=== PATIENT | female | born 1985 | race Caucasian/White ===

== ENCOUNTER 2017-06-22 14:32 | Emergency (ER) | payer MEDICAID ==
[2017-06-22 14:55] VITALS: BP 126/74
--- NOTE | 2017-06-22 15:20 | EDM.PDOC ---
ED HPI GENERAL MEDICAL PROBLEM - General Chief Complaint: Upper Extremity Injury/Pain Stated Complaint: right wrist pain Time Seen by Provider: 06/22/17 15:06 Source of Information: Reports: Patient History Limitations: Reports: No Limitations - History of Present Illness INITIAL COMMENTS - FREE TEXT/NARRATIVE: Patient here with complaint of pain lateral right wrist since she tried to lift bike to hang it upside down for storage in garage. Bike fell/swung while she tried to hang one tire and as she tried to catch it she heard a pop noise in the wrist and felt burning pain lateral wrist. Had tingling sensation in same zone. Pain traveled lateral forearm towards elbow. Since then her wrist has hurt when she moves it. No pain if wrist is at rest. No other reported injuries. 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 ED EXAM, GENERAL - Physical Exam Exam: See Below Exam Limited By: No Limitations General Appearance: Alert, WD/WN, No Apparent Distress Eye Exam: Bilateral Eye: EOMI, PERRL Head: Atraumatic, Normocephalic Respiratory/Chest: No Respiratory Distress Extremities: Other (Examination of right wrist shows no sign of trauma. No swelling. Patient has full ROM in wrist and fingers but voices that there is discomfort in lateral portion of forearm/wrist with all motion. Pain-free at rest. 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 Is mildly tender to touch with palpation over lateral portion of distal right forearm and wrist area. Vascularly intact. ) Neurological: Alert, Oriented, Normal Cognition Psychiatric: Normal Affect, Normal Mood Skin Exam: Warm, Dry, Intact, Normal Color Course - Vital Signs Last Recorded V/S: Last Vital Signs Temp 36.4 C 06/22/17 14:53 Pulse 76 06/22/17 14:53 Resp 14 06/22/17 14:53 BP 126/74 06/22/17 14:53 Pulse Ox 100 06/22/17 14:53 - Orders/Labs/Meds Orders: Active Orders 24 hr Category Date Time Status Wrist 2V Rt [CR] Stat Exams 06/22/17 14:37 Taken - Radiology Interpretation Free Text/Narrative:: Xray of wrist did not show obvious fracture. - Re-Assessments/Exams Free Text/Narrative Re-Assessment/Exam: 06/22/17 15:32 Xray appears unremarkable. Suspect strain/sprain. Wrist splinted for comfort. Will have patient wear splint over weekend and then advance activity as tolerated. She is to follow up at primary clinic later this week if pain has not improved. Departure - Departure Time of Disposition: 15:14 Disposition: Home, Self-Care 01 Condition: Good Clinical Impression: Other wrist sprain and strain - Discharge Information Instructions: Wrist Sprain Referrals: Caterina Davison PA-C [Primary Care Provider] - Forms: ED Department Discharge Additional Instructions: Wear splint for comfort over the weekend. You may continue to wear it next week to provide support if it continues to provide comfort. Follow up with your primary provider at the end of the week if you have not noted any improvement in pain and get rechecked. At this time, it appears that your may have irritated a tendon or ligament. No obvious fracture was noted on the xray. This will be reviewed by Radiology. OK to take Ibuprofen or Tylenol or Aleve for pain. - My Orders Last 24 Hours: My Active Orders 06/22/17 14:37 Wrist 2V Rt [CR] Stat - Assessment/Plan Last 24 Hours: My Active Orders 06/22/17 14:37 Wrist 2V Rt [CR] Stat
== END 2017-06-22 15:30 | disposition home or self-care (01) ==
LOC: LL.ED 14:32
DX: S63.501A Unspecified sprain of right wrist, initial encounter (principal); S66.911A Strain of unspecified muscle, fascia and tendon at wrist and hand level, right hand, initial encounter; E03.9 Hypothyroidism, unspecified; Z88.1 Allergy status to other antibiotic agents; Z91.018 Allergy to other foods; X50.0XXA Overexertion from strenuous movement or load, initial encounter
CPT/HCPCS: 73100-RT; 99283

== ENCOUNTER 2019-10-29 10:26 | Day surgery (SDC) | payer MEDICAID ==
[~2019-10-29 10:26] MED LIST: Ketamine 500 mg/10 ML MDV ONE; Midazolam 1 MG/ML 2 ML SDV ONE; Propofol 200 MG/20 ML SDV ONE
[2019-10-29] MEDS ORDERED: Sodium Chloride 0.9% 10 ML Syringe FLUSH PRN (10:45)
[2019-10-29] MEDS ORDERED: Lactated Ringers 1,000 ML IV SCH (10:45)
[2019-10-29] MEDS ORDERED: Ketamine 500 mg/10 ML MDV IV ONE (12:00)
[2019-10-29] MEDS ORDERED: Lidocaine 2% 5 ML SDV ONE (12:00)
--- NOTE | 2019-10-29 12:01 | PCM.PN ---
- General Info Date of Service: 10/29/19 - Review of Systems Systems Review Comment:: 34-year-old female referred for EGD. She has been having some epigastric pain. Gallbladder evaluation did identify a gallbladder polyp. She is medically stable to proceed today. Her recent history and physical is reviewed and no significant changes are noted. I have discussed the proposed upper endoscopy with the patient. She agrees to proceed accepting risks. - Patient Data Vitals - Most Recent: Last Vital Signs Temp 98.2 F 10/29/19 11:20 Pulse 81 10/29/19 11:20 Resp 18 10/29/19 11:20 BP 130/69 10/29/19 11:20 Pulse Ox 99 10/29/19 11:20 Weight - Most Recent: 89.8 kg Lab Results Last 24 Hours: Laboratory Results - last 24 hr 10/29/19 Range/Units 11:00 HCG, Qual Negative (NEGATIVE) Med Orders - Current: Current Medications Lactated Ringer's (Ringers, Lactated) 1,000 mls @ 125 mls/hr IV ASDIRECTED KASSANDRA Last Admin: 10/29/19 11:15 Dose: 125 mls/hr Sodium Chloride (Saline Flush) 10 ml FLUSH ASDIRECTED PRN PRN Reason: Keep Vein Open Discontinued Medications Ketamine HCl (Ketalar) Confirm Administered Dose 500 mg .ROUTE .STK-MED ONE Stop: 10/29/19 08:42 Midazolam HCl (Versed 1 Mg/Ml) Confirm Administered Dose 2 mg .ROUTE .STK-MED ONE Stop: 10/29/19 08:42 Propofol (Diprivan 20 Ml) Confirm Administered Dose 200 mg .ROUTE .STK-MED ONE Stop: 10/29/19 08:42 Sepsis Event Note - Focused Exam Vital Signs: Vital Signs Temp Pulse Resp BP Pulse Ox 10/29/19 11:20 98.2 F 81 18 130/69 99 Date Exam was Performed: 10/29/19 Time Exam was Performed: 12:00 - Problem List Review Problem List Initiated/Reviewed/Updated: Yes - My Orders Last 24 Hours: My Active Orders 10/29/19 10:45 Patient Status [ADT] Routine Peripheral IV Care [RC] . DIRECTED Verify Patient Consent Obtain [RC] ROUTINE Lactated Ringers [Ringers, Lactated] 1,000 ml IV ASDIRECTED Sodium Chloride 0.9% [Saline Flush] 10 ml FLUSH ASDIRECTED PRN Peripheral IV Insertion Adult [OM.PC] Routine - Assessment Assessment:: epigastric pain - Plan Plan:: EGD
--- NOTE | 2019-10-29 12:27 | PCM.OPNOTE ---
- General Post-Op/Procedure Note Date of Surgery/Procedure: 10/29/19 Operative Procedure(s): EGD with Biopsy Findings: Normal appearing structures on upper endoscopy Pre Op Diagnosis: Epigastric pain Post-Op Diagnosis: Normal upper endoscopy Anesthesia Technique: MAC Primary Surgeon: Carlitos An Pathology: Biopsies of duodenum and gastric antrum EBL in mLs: 2 Complications: None Condition: Good
[2019-10-29 15:14] VITALS: BP 125/70; PULSE 64
--- NOTE | 2019-11-12 14:22 | OR ---
Date of Procedure: 10/29/2019 PREOPERATIVE DIAGNOSIS: Epigastric pain. POSTOPERATIVE DIAGNOSIS: Normal upper endoscopy. INDICATIONS FOR SURGERY: This 34-year-old female has been having some unexplained symptoms of upper abdominal discomfort. She is referred for diagnostic upper endoscopy. FINDINGS: Structures visualized during the upper endoscopy appeared normal. The esophagus appeared normal without any stricturing or visible signs of inflammation. The Z-line was distinct and no significant hiatal hernia was identified. The gastric mucosa appeared normal without visible signs of ulceration or other abnormalities. NASH An MD /[id number]
--- NOTE | 2019-11-12 14:33 | OR ---
Date of Procedure: 10/29/2019 PREOPERATIVE DIAGNOSIS: Epigastric pain. POSTOPERATIVE DIAGNOSIS: Normal upper endoscopy. INDICATIONS FOR SURGERY: This 34-year-old female has been having some unexplained symptoms of upper abdominal discomfort. She is referred for diagnostic upper endoscopy. FINDINGS: Structures visualized during the upper endoscopy appeared normal. The esophagus appeared normal without any stricturing or visible signs of inflammation. The Z-line was distinct and no significant hiatal hernia was identified. The gastric mucosa appeared normal without visible signs of ulceration or other abnormalities. DESCRIPTION OF PROCEDURE: The patient was taken to the operating room. She was given intravenous sedation. Her throat was topically anesthetized. With her in the left lateral decubitus position, an Olympus gastroscope was advanced through the mouth guard into the oral cavity. Under direct visualization, the gastroscope was advanced down into the esophagus and then down into the stomach and duodenum. The proximal duodenum was carefully examined and appeared normal. Random biopsies of the proximal duodenum were taken because of the patient's symptoms. The scope was withdrawn back into the stomach where full examination including retroflexed examination of the fundus was performed. Random biopsies of the antrum are taken to rule out H. pylori. After the stomach and GE junction area are carefully examined, the esophagus was re-examined as the scope was withdrawn. The scope was removed, and the patient was taken from the operating room in satisfactory condition. ESTIMATED BLOOD LOSS: 3 mL. COMPLICATIONS: None. PROGNOSIS: Good. NASH An MD /[id number]
== END 2019-10-29 14:05 | disposition home or self-care (01) ==
LOC: LL.SDS 10:26
PROVIDERS: ATTEND Surgery
DX: K29.50 Unspecified chronic gastritis without bleeding (principal); K21.9 Gastro-esophageal reflux disease without esophagitis; E03.9 Hypothyroidism, unspecified; K82.4 Cholesterolosis of gallbladder; E66.9 Obesity, unspecified; Z68.36 Body mass index [BMI] 36.0-36.9, adult; Z88.0 Allergy status to penicillin; Z91.018 Allergy to other foods; Z88.8 Allergy status to other drugs, medicaments and biological substances; Z79.899 Other long term (current) drug therapy
CPT/HCPCS: 00813; 36415; 43239; 84703; J7120